=== PATIENT | male | born 1960 | race Hispanic/Latino ===

== ENCOUNTER 2018-04-28 09:48 | Outpatient (CLI) | payer MEDICARE ==
--- NOTE | 2018-04-28 11:18 | ULT ---
RENAL ULTRASOUND: INDICATIONS: BPH. FINDINGS: The right kidney measures 10.0 x 5.9 x 5.6 cm. There is a 3.5 cm cyst involving the lateral right mi d kidney. The left kidney measures 11.0 x 6.3 x 6.6 cm. No focal renal lesion or hydronephrosis is evident. Pre-void bladder volume is 1461 mL. Post-void bladder volume is 1233 mL. The prostate measured 5.8 x 3.0 x 5.2 cm. IMPRESSION: 1. Prominent bladder distention with prominent post-void residual. 2. Prostate enlargement. 3. Right renal cyst. POS: [facility]
== END 2018-04-28 09:49 | disposition home or self-care (01) ==
LOC: BICULT 09:48
PROVIDERS: ATTEND Urology
DX: N40.1 Benign prostatic hyperplasia with lower urinary tract symptoms (principal); N28.1 Cyst of kidney, acquired; N32.89 Other specified disorders of bladder
CPT/HCPCS: 76770

== ENCOUNTER 2018-05-27 10:13 | Outpatient (CLI) | payer MEDICARE ==
[2018-05-27 11:06] LABS: Hemoglobin 11.6 g/dL (14.0-18.0); Mean Corpuscular HGB CONC 32.4 g/dL (32.0-36.0); Mean Corpuscular Hemoglobin 26.4 pg (27.0-31.0); Mean Corpuscular Volume 81.3 fL (78.0-98.0); Platelet Count 199 thou/uL (130-400); RBC Distribution Width 17.7 % (11.5-14.5); White Blood Cell (WBC) Count 7.8 thou/uL (4.8-10.8)
[2018-05-27 11:08] LABS: Bilirubin Negative (Negative); Blood, Urine Negative (Negative); Glucose, Urine (Dipstick) Negative (Negative); Leukocyte Small (Negative); Nitrite Positive (Negative); Protein, Urine (Dipstick) Negative (Neg-Trace); Specific Gravity, Urine 1.015 (1.005-1.030); Urobilinogen 0.2 mg/dL (0.2-1.0)
[2018-05-27 11:11] LABS: Clarity Hazy (Clear)
[2018-05-27 11:17] LABS: PTT 27.3 SEC (22.9-36.1); Prothrombin Time 13.4 SEC (12.0-14.7)
[2018-05-27 11:20] LABS: Bacteria/HPF 1+ HPF (None Seen)
[2018-05-27 11:21] LABS: Hyaline Casts/LPF NONE SEEN LPF (0-3 Hyaline); RBC/HPF 0-3 HPF (0-3); Squamous Epithelial None Seen HPF (0-3)
[2018-05-27 11:26] LABS: Anion Gap 14 mmol/L (10-20); BUN (Urea Nitrogen) 20 mg/dL (8.4-25.7); Calc. Creatinine Clearance 0 mL/min (70-130); Calcium 8.8 mg/dL (7.8-10.44); Carbon Dioxide 21 mmol/L (22-29); Chloride 107 mmol/L (98-107); Estimated GFR-MDRD 67; Glucose 96 mg/dL (70-105); Potassium 3.6 mmol/L (3.5-5.1); Sodium 138 mmol/L (136-145)
--- NOTE | 2018-05-27 15:51 | EKG ---
Test Reason : Blood Pressure : / mmHG Vent. Rate : 081 BPM Atrial Rate : 081 BPM P-R Int : 132 ms QRS Dur : 084 ms QT Int : 368 ms P-R-T Axes : 009 018 042 degrees QTc Int : 427 ms Sinus rhythm with Premature atrial complexes Otherwise normal ECG Confirmed by SARAY RAWLS ([id number]) on 05/27/2018 3:50:45 PM Referred By: TA Confirmed By:SARAY RAWLS
== END 2018-05-27 10:14 | disposition home or self-care (01) ==
LOC: LABBT 10:13
PROVIDERS: ATTEND Urology
DX: Z01.818 Encounter for other preprocedural examination (principal); N40.1 Benign prostatic hyperplasia with lower urinary tract symptoms; N13.8 Other obstructive and reflux uropathy; N52.01 Erectile dysfunction due to arterial insufficiency; R33.9 Retention of urine, unspecified
CPT/HCPCS: 80048; 81001; 85027; 85610; 85730; 87086; 93005; 93010

== ENCOUNTER 2018-06-03 09:06 | Observation (INO) | payer MEDICARE ==
[2018-05-27 10:25] VITALS: BMI 33.0
[2018-06-03] MEDS ORDERED: Levofloxacin 500 mg/D5W 100 ml Premix Bag ONE (10:40)
[2018-06-03] MEDS ORDERED: Midazolam HCl 2 mg/2 ml Vial ONE (12:02)
[2018-06-03] MEDS ORDERED: Fentanyl 100 MCG/2 ML VIAL ONE ×5 (12:02→14:50)
[2018-06-03] MEDS ORDERED: Lidocaine 1% PF 5 ML VIAL ONE (12:23)
[2018-06-03] MEDS ORDERED: Esmolol 100 MG/10 ML VIAL ONE (12:23)
[2018-06-03] MEDS ORDERED: Rocuronium Bromide 10 MG/ML (10ML VIAL) ONE (12:23)
[2018-06-03] MEDS ORDERED: PROPOFOL 200 MG/20 ML VIAL ONE (12:23)
[2018-06-03] MEDS ORDERED: B & O ONE (13:34)
[2018-06-03] MEDS ORDERED: Oxybutynin 5 MG TAB PO PRN (13:37)
[2018-06-03] MEDS ORDERED: diphenhydrAMINE 25 MG CAP PO PRN (13:37)
[2018-06-03] MEDS ORDERED: Bisacodyl 10 MG SUPP PR PRN (13:37)
[2018-06-03] MEDS ORDERED: Hyoscyamine Sulfate SL 0.125 mg Tablet SL PRN (13:37)
[2018-06-03] MEDS ORDERED: Morphine 4 MG/ML VIAL SLOW IVP PRN ×2 (13:37)
[2018-06-03] MEDS ORDERED: Mag-Al 1200 mg/1200 mg/30 ML UDCUP PO PRN (13:37)
[2018-06-03] MEDS ORDERED: traMADol HCl 50 MG TAB PO PRN (13:40)
--- NOTE | 2018-06-03 14:11 | OP ---
DATE OF PROCEDURE: 06/03/2018 SERVICE: Urology. PREOPERATIVE DIAGNOSIS: Benign prostatic hypertrophy with retention. POSTOPERATIVE DIAGNOSIS: Benign prostatic hypertrophy with retention. PROCEDURE PERFORMED: Transurethral vaporization of the prostate. INDICATIONS FOR PROCEDURE: Mr. Cardenas is a 57-year-old male, who initially had presented to me with significant voiding complaints. It was found that he had a PVR of over 1400, but no hydronephrosis on renal ultrasound. I had counseled him that he probably required aggressive intervention and cystoscopy did demonstrate an obstructive prostate. I recommended transurethral vaporization of the prostate with all risks and benefits discussed and he has agreed to proceed forward. DESCRIPTION OF PROCEDURE: After identification of armband and verification of consent, the patient was brought back to the operating room, where he underwent general anesthesia with an LMA. He was then placed in dorsal lithotomy position and prepped and draped in the usual sterile fashion. After appropriate time-out, the meatus was dilated with [place] sounds up to 28-Mongolian and then the visual obturator on the resectoscope sheath was able to be passed easily through the urethra up into the bladder. The prostate was obstructive as demonstrated on previous cystoscopy. The visual obturator was switched out for the bipolar vaporization button. Vaporization was started out on the right lateral lobe and carried out to the left lateral lobe and then to the posterior and anterior prostate. Bladder neck relaxing incisions were done at 5 o'clock and 7 o'clock to widely open the bladder neck. Vaporization was continued until capsular fibers could be seen. At which point, vaporization was taken down close to that point, taking care not to penetrate the capsular fibers. Once complete, the prostate was wide open with the vast majority of the prostate being completely vaporized out. The meticulous hemostasis was then performed with the coag function on the bipolar button and once very good hemostasis was achieved. Reinspection into the bladder demonstrated both ureters in their orthotopic location unharmed. The bladder was evacuated and the prostatic fossa reinspected with low pressure to ensure there was no bleeding and none was encountered. The bladder was refilled and the cystoscope removed. A 22-[place]ong[place]ian three-way Bloom catheter with 30 mL of sterile water placed into the balloon and CBI initiated. The patient had a B and O suppository placed. He was then taken out of positioning, awakened, taken to PACU for recovery in stable condition. COMPLICATIONS: None. ESTIMATED BLOOD LOSS: Minimal. RETAINED TUBES AND DRAINS: A 22-[place] three-way Bloom catheter on CBI. SPECIMENS: None. DISPOSITION: The patient will be kept in the hospital overnight, will be discharged home and follow up will be handled on an outpatient basis. Job ID: [id number]
[2018-06-03] MEDS ORDERED: Hyoscyamine Sulfate SL 0.125 mg Tablet ONE ×2 (14:12→14:14)
[2018-06-03] MEDS ORDERED: Ondansetron HCl/PF 4 MG/2 ML Vial IVP PRN (14:34)
[2018-06-03] MEDS ORDERED: Non-Formulary Medication 1 EACH PO PRN (14:34)
[2018-06-03] MEDS ORDERED: Promethazine HCl 25 MG/ML VIAL IM/IV PRN (14:35)
[2018-06-03] MEDS: Acetaminophen 500 MG TAB PO SCH ×2 (16:02→20:20)
[2018-06-03] MEDS: hydrALAZINE 20 MG/ML VIAL SLOW IVP PRN (16:17)
[2018-06-03] MEDS: Docusate 100 MG CAP PO SCH (20:20)
[2018-06-03] MEDS ORDERED: Atorvastatin Calcium 40 MG TAB PO SCH (21:00)
[2018-06-04] MEDS: hydrALAZINE 20 MG/ML VIAL SLOW IVP PRN (00:05)
[2018-06-04] MEDS: Acetaminophen 500 MG TAB PO SCH ×2 (01:53→07:56)
[2018-06-04 04:53] LABS: #Lymphocytes 2.1 thou/uL (1.20-3.40); #Monocytes 0.6 thou/uL (0.11-0.59); #Neutrophils 6.5 thou/uL (1.40-6.50); %Basophils 0.2 % (0.0-1.0); %Eosinophils 0.2 % (0.0-10.0); %Lymphocytes 22.6 % (21.0-51.0); %Monocytes 6.7 % (0.0-10.0); %Neutrophils 70.3 % (42.0-75.0); Hemoglobin 10.6 g/dL (14.0-18.0); Mean Corpuscular HGB CONC 31.7 g/dL (32.0-36.0); Mean Corpuscular Hemoglobin 25.9 pg (27.0-31.0); Mean Corpuscular Volume 81.7 fL (78.0-98.0); Mean Platelet Volume 9.3 fL (7.4-10.4); Platelet Count 183 thou/uL (130-400); RBC Distribution Width 17.6 % (11.5-14.5); White Blood Cell (WBC) Count 9.2 thou/uL (4.8-10.8)
[2018-06-04 05:11] LABS: Anion Gap 13 mmol/L (10-20); BUN (Urea Nitrogen) 14 mg/dL (8.4-25.7); Calc. Creatinine Clearance 142 mL/min (70-130); Calcium 8.8 mg/dL (7.8-10.44); Carbon Dioxide 23 mmol/L (22-29); Chloride 106 mmol/L (98-107); Estimated GFR-MDRD Greater than 90; Glucose 107 mg/dL (70-105); Potassium 3.4 mmol/L (3.5-5.1); Sodium 139 mmol/L (136-145)
[2018-06-04] MEDS: Docusate 100 MG CAP PO SCH (07:55)
[2018-06-04] MEDS ORDERED: Leflunomide 10 mg Tablet PO SCH (09:00)
[2018-06-04] MEDS ORDERED: Amlodipine 5 MG TAB PO SCH (09:00)
[2018-06-04] MEDS ORDERED: Magnesium Oxide 400 MG TAB PO SCH (09:00)
--- NOTE | 2018-06-04 10:58 | DIS ---
DATE OF ADMISSION: 06/03/2018 DATE OF DISCHARGE: 06/04/2018 HOSPITAL COURSE: The patient was doing well this morning. He had no complaints. The CBI was shut up at 7:00 am and now 8 a.m. and the urine is clear and yellow. His vitals have been stable with a T-max 99.1. He has been hypertensive at 179/92 with pulse of 78 and saturating 99% on room air. On exam, catheter was appropriately secured. The balloon was deflated and then it was removed without incident. Laboratory values reveal an hemoglobin and hematocrit of 10.6 and 33.5. Chemistries of 3.4 for potassium and creatinine is 0.87. We reviewed our given both magnesium and potassium to replace this low level as long as he can void. He will be discharged today with instructions already given for Dr. Gray for followup. If there is any concern about his emptying or he is unable to void, then a catheter will be placed and then he will be discharged with that. Prescriptions and appropriate followup have been arranged by Dr. Gray already. Job ID: [id number]
[2018-06-04] MEDS ORDERED: Potassium Chloride 20 MEQ TAB PO SCH (11:00)
[2018-06-04 11:41] VITALS: BP 120/66; TEMP 98.5
== END 2018-06-04 14:37 | disposition home or self-care (01) ==
LOC: SDC 09:06 → SJJU 13:58
PROVIDERS: ADMIT Urology; ATTEND Urology
PROC: 0VT08ZZ Resection of Prostate, Via Natural or Artificial Opening Endoscopic (ICD-10-PCS; principal; 2018-06-03)
DX: N40.1 Benign prostatic hyperplasia with lower urinary tract symptoms (principal); R33.8 Other retention of urine; R39.14 Feeling of incomplete bladder emptying; N52.01 Erectile dysfunction due to arterial insufficiency; N13.8 Other obstructive and reflux uropathy; I25.2 Old myocardial infarction; I25.10 Atherosclerotic heart disease of native coronary artery without angina pectoris; K21.9 Gastro-esophageal reflux disease without esophagitis; F17.210 Nicotine dependence, cigarettes, uncomplicated; Z79.899 Other long term (current) drug therapy; Z95.1 Presence of aortocoronary bypass graft
CPT/HCPCS: 52601; 80048; 85025; 96365; 96375; 96376; G0378; 36415; J0360; J1956; J2001; J2250; J2704; J3010

== ENCOUNTER 2018-07-30 12:52 | Outpatient (CLI) | payer MEDICARE ==
--- NOTE | 2018-07-30 14:53 | ULT ---
Intraoperative cholangiogram INDICATION: Cholangiogram; cholecystectomy; evaluate for common bile duct stones FINDINGS: Single submitted intraoperative fluoroscopic image demonstrates retrograde opacification of the common bile duct and intrahepatic ducts. No visible filling defect is evident. No extravasation is noted. Contrast is seen to flow into the duodenum. Total fluoroscopic time was 2 sec onds. Total exposure was 0.32 mGy. IMPRESSION: No intraluminal filling defect to suggest retained common bile duct stone.
== END 2018-07-30 12:53 | disposition home or self-care (01) ==
LOC: ULT 12:52
PROVIDERS: ATTEND Family Medicine
DX: G25.81 Restless legs syndrome (principal)
CPT/HCPCS: 93922

== ENCOUNTER 2018-10-21 08:38 | Outpatient (CLI) | payer MEDICARE ==
--- NOTE | 2018-10-21 11:12 | ULT ---
BILATERAL RENAL ULTRASOUND: Date: 10/21/18 COMPARISON: None. HISTORY: Urinary retention. Please pay attention to the urinary bladder. TECHNIQUE: Multiplanar Aranda scale and color Doppler images were obtained in a renal ultrasound. FINDINGS: The kidneys are normal in echogenicity. There is an anechoic cyst in the right kidney measures 3.4 cm in greatest dimension. No hydronephrosis or calculi seen on either side. Limited visualization of the urinary bladder is unremarkable. Post-void bladder volume is 520 mL. IMPRESSION: 1. Right renal cyst. 2. Large post-void residual. POS: [facility]
== END 2018-10-21 08:39 | disposition home or self-care (01) ==
LOC: ULT 08:38
PROVIDERS: ATTEND Urology
DX: R39.14 Feeling of incomplete bladder emptying (principal); N28.1 Cyst of kidney, acquired; N39.43 Post-void dribbling
CPT/HCPCS: 76770

== ENCOUNTER 2020-02-21 10:57 | Outpatient (CLI) | payer MEDICARE ==
--- NOTE | 2020-02-21 12:02 | RAD ---
PA AND LATERAL VIEWS CHEST: Date: 02/21/2020 HISTORY: Dyspnea on exertion. COMPARISON: 07/14/2016. FINDINGS: Changes of median sternotomy again seen. The heart size is normal. The lungs are well expanded withou t lobar consolidation, pneumothoraces, or pleural effusions. There are mild degenerative4 changes in the spine. IMPRESSION: No radiographic evidence of acute cardiopulmonary process. POS: OFF
== END 2020-02-21 10:58 | disposition home or self-care (01) ==
LOC: BICRAD 10:57
PROVIDERS: ATTEND Family Medicine
DX: I25.709 Atherosclerosis of coronary artery bypass graft(s), unspecified, with unspecified angina pectoris (principal); K22.10 Ulcer of esophagus without bleeding; R06.00 Dyspnea, unspecified
CPT/HCPCS: 36415; 71046; 80053; 80061; 81001; 83036; 83880; 84153; 84443; 85025

== ENCOUNTER 2021-08-08 08:03 | Day surgery (SDC) | payer MEDICARE ==
[2021-08-07 10:39] VITALS: BMI 35.9
[2021-08-08] MEDS ORDERED: Heparin 10,000 UNITS/ 10 ML VIAL ONE (08:53)
[2021-08-08] MEDS ORDERED: Lidocaine 1% (PF) 30 ML VIAL ONE (08:53)
[2021-08-08] MEDS ORDERED: Fentanyl 100 MCG/2 ML VIAL ONE ×2 (09:52→10:58)
[2021-08-08] MEDS ORDERED: Propofol 500 MG/50 ML VIAL ONE ×2 (09:53→10:41)
[2021-08-08] MEDS ORDERED: Lidocaine 1% PF 5 ML VIAL ONE (10:03)
[2021-08-08] MEDS ORDERED: Midazolam HCl 2 mg/2 ml Vial ONE (10:17)
== END 2021-08-08 13:28 | disposition home or self-care (01) ==
LOC: SDC 08:03
PROVIDERS: ATTEND Internal Medicine Cardiovascular Disease
DX: I48.3 Typical atrial flutter (principal); I25.10 Atherosclerotic heart disease of native coronary artery without angina pectoris; I12.9 Hypertensive chronic kidney disease with stage 1 through stage 4 chronic kidney disease, or unspecified chronic kidney disease; N18.9 Chronic kidney disease, unspecified; M06.9 Rheumatoid arthritis, unspecified; Z79.82 Long term (current) use of aspirin; Z79.899 Other long term (current) drug therapy; Z88.8 Allergy status to other drugs, medicaments and biological substances; Z95.1 Presence of aortocoronary bypass graft
CPT/HCPCS: 93005; 93613; 93653; C1731; C2630; J1644; J2001; J2250; J2704; J3010

== ENCOUNTER 2022-12-25 14:13 | Outpatient (CLI) | payer MEDICARE ==
[~2022-12-25 14:13] MED LIST: Iopamidol 370 76% 100 ML VIAL ONE
== END 2022-12-25 14:14 | disposition home or self-care (01) ==
LOC: BICCT 14:13
PROVIDERS: ATTEND Nurse Practitioner Family
DX: I48.92 Unspecified atrial flutter (principal); F17.210 Nicotine dependence, cigarettes, uncomplicated; I25.709 Atherosclerosis of coronary artery bypass graft(s), unspecified, with unspecified angina pectoris; R91.8 Other nonspecific abnormal finding of lung field; K80.20 Calculus of gallbladder without cholecystitis without obstruction; N28.1 Cyst of kidney, acquired; E27.8 Other specified disorders of adrenal gland
CPT/HCPCS: 71260